=== PATIENT | female | born 1965 | race Caucasian/White ===

== ENCOUNTER 2017-02-26 14:09 | Emergency (ER) | payer MEDICAID ==
[~2017-02-26] VITALS: Ht 172.7 cm; Wt 79.4 kg
[2017-02-26 15:42] VITALS: BP 118/74
== END 2017-02-26 15:40 | disposition home or self-care (01) ==
LOC: ED 14:09
DX: F31.9 Bipolar disorder, unspecified (principal); L29.9 Pruritus, unspecified; I10 Essential (primary) hypertension
CPT/HCPCS: J0515; J1630